=== PATIENT | male | born 1965 | race Caucasian/White ===

== ENCOUNTER 2019-04-16 06:18 | Day surgery (SDC) | payer BC ==
[2019-04-15 15:40] VITALS: BMI 26.6
[2019-04-16] MEDS ORDERED: Sodium Chloride 0.9% 10 ML ONE (06:37)
[2019-04-16] MEDS ORDERED: Thrombin 5000 UNITS/5 ML VIAL ONE (06:37)
[2019-04-16 06:58] LABS: #Eosinphils 0.1 thou/uL (0.0-0.7); #Lymphocytes 1.5 thou/uL (1.20-3.40); #Monocytes 0.6 thou/uL (0.11-0.59); #Neutrophils 5.6 thou/uL (1.40-6.50); %Basophils 0.1 % (0.0-1.0); %Eosinophils 0.8 % (0.0-10.0); %Lymphocytes 19.6 % (21.0-51.0); %Monocytes 7.9 % (0.0-10.0); %Neutrophils 71.7 % (42.0-75.0); Hemoglobin 15.4 g/dL (14.0-18.0); Mean Corpuscular HGB CONC 34.9 g/dL (32.0-36.0); Mean Corpuscular Hemoglobin 31.3 pg (27.0-31.0); Mean Corpuscular Volume 89.6 fL (78.0-98.0); Mean Platelet Volume 7.2 fL (7.4-10.4); Platelet Count 257 thou/uL (130-400); RBC Distribution Width 11.7 % (11.5-14.5); Red Blood Cell (RBC) Count 4.93 mill/uL (4.70-6.10); White Blood Cell (WBC) Count 7.8 thou/uL (4.8-10.8)
[2019-04-16] MEDS ORDERED: Cyclopentolate 1% Opth Drop 2 ML BOT ONE (07:00)
[2019-04-16] MEDS ORDERED: Phenylephrine 2.5% Ophth Soln 5 ML BOT ONE (07:00)
[2019-04-16] MEDS ORDERED: Fentanyl 250 MCG/5 ML VIAL ONE (07:02)
[2019-04-16 07:10] LABS: PTT 26.9 SEC (22.9-36.1); Prothrombin Time 12.7 SEC (12.0-14.7)
[2019-04-16 07:26] LABS: Anion Gap 11 mmol/L (10-20); BUN (Urea Nitrogen) 23 mg/dL (8.4-25.7); Calc. Creatinine Clearance 108 mL/min (70-130); Calcium 9.5 mg/dL (7.8-10.44); Carbon Dioxide 24 mmol/L (22-29); Chloride 106 mmol/L (98-107); Estimated GFR-MDRD Greater than 90; Glucose 102 mg/dL (70-105); Potassium 4.2 mmol/L (3.5-5.1); Sodium 137 mmol/L (136-145)
[2019-04-16] MEDS ORDERED: Acetaminophen 325 MG TAB PO PRN (10:26)
[2019-04-16] MEDS ORDERED: Milk Of Magnesia 30 ML UDCUP PO PRN (10:26)
[2019-04-16] MEDS ORDERED: traMADol HCl 50 MG TAB PO PRN (10:26)
[2019-04-16] MEDS ORDERED: Morphine 2 MG/ML SYRINGE SLOW IVP PRN (10:26)
[2019-04-16] MEDS ORDERED: Acetaminophen/Codeine 30-300mg Tablet PO PRN (10:26)
[2019-04-16] MEDS ORDERED: tiZANidine HCl 4 MG TAB PO PRN (10:26)
[2019-04-16] MEDS ORDERED: Fleet Enema 133 ML BOT PR PRN (10:26)
[2019-04-16] MEDS ORDERED: Bisacodyl 10 MG SUPP PR PRN (10:26)
[2019-04-16] MEDS ORDERED: HYDROcodone/Acetaminophen 7.5/325 mg Tablet PO PRN (10:26)
[2019-04-16] MEDS ORDERED: Ondansetron PF 4 MG/2 ML Vial IVP PRN (10:26)
[2019-04-16] MEDS ORDERED: Mag-Al 1200 mg/1200 mg/30 ML UDCUP PO PRN (10:26)
[2019-04-16] MEDS ORDERED: Fentanyl 100 MCG/2 ML VIAL ONE ×3 (10:46→15:14)
[2019-04-16] MEDS ORDERED: Ketorolac Tromethamine 30 MG/ML VIAL ONE (11:26)
[2019-04-16] MEDS ORDERED: Ondansetron PF 4 MG/2 ML Vial ONE ×2 (12:06→12:24)
[2019-04-16] MEDS ORDERED: PROPOFOL 200 MG/20 ML VIAL ONE (12:06)
[2019-04-16] MEDS ORDERED: Glycopyrrolate 0.2 MG/ML 5 ML SYRINGE ONE (12:06)
[2019-04-16] MEDS ORDERED: ePHEDrine 50 MG/ML VIAL ONE (12:06)
[2019-04-16] MEDS ORDERED: Lidocaine 1% PF 5 ML VIAL ONE (12:06)
[2019-04-16] MEDS ORDERED: Rocuronium Bromide 10 MG/ML (10ML VIAL) ONE (12:06)
[2019-04-16] MEDS ORDERED: Dexamethasone 20 MG/5 ML VIAL ONE (12:06)
[2019-04-16] MEDS ORDERED: Promethazine HCl 25 MG/ML VIAL ONE (13:01)
[2019-04-16] MEDS ORDERED: Ondansetron HCl/PF 4 MG/2 ML Vial IVP PRN (15:08)
[2019-04-16] MEDS ORDERED: Ketorolac Tromethamine 30 MG/ML VIAL IVP PRN (15:08)
[2019-04-16] MEDS ORDERED: Promethazine HCl 25 MG/ML VIAL IM PRN (15:08)
[2019-04-16] MEDS ORDERED: Promethazine HCl 25 MG/ML VIAL SLOW IVP PRN (15:08)
[2019-04-16] MEDS ORDERED: Acetaminophen 1,000 MG in Premix Bag 1 BAG IVPB SCH ×2 (15:15→18:00)
[2019-04-16] MEDS: CEFAZOLIN 2 GM in Premix Bag 1 BAG IVPB SCH (16:15)
[2019-04-16] MEDS: Sodium Chloride 0.9% 1,000 ML IV SCH (16:19)
[2019-04-16] MEDS ORDERED: Gabapentin 300 MG CAP PO SCH (21:00)
[2019-04-17] MEDS: CEFAZOLIN 2 GM in Premix Bag 1 BAG IVPB SCH ×2 (00:13→06:17)
[2019-04-17] MEDS: Sodium Chloride 0.9% 1,000 ML IV SCH (00:14)
[2019-04-17 04:35] VITALS: TEMP 97.9
[2019-04-17 04:36] VITALS: BP 124/71
--- NOTE | 2019-04-17 08:19 | OP ---
DATE OF PROCEDURE: 04/16/2019 LOCATION: OR 12. WOUND CLASSIFICATION: Type 1 wound. COOPERER: Noel Rosales PA-C PREPROCEDURE DIAGNOSES: Cervical stenosis with disk extrusion and neck and left arm pain and weakness. POSTPROCEDURE DIAGNOSES: Cervical stenosis with disk extrusion and neck and left arm pain and weakness. PROCEDURES PERFORMED: 1. Anterior C5-C6 and C6-C7 diskectomies for decompression of spinal cord nerve roots. 2. Placement of spacer packed with graft for arthrodesis C5-C6 and C6-C7. 3. Anterior cervical plate and screw fixation C5, C6, and C7. 4. Use of operative microscope for microdissection. DESCRIPTION OF PROCEDURE: After informed consent was obtained from the patient , the patient was brought to the OR. Proper patient, pause, and identification were carried out. He was placed under excellent endotracheal anesthesia and positioned supine on the OR table. A cervical spine was kept in neutral position. We then with a right anterior oblique petey identified the approach and proper patient, pause, and identification, incision was made. We proceeded lateral to the tracheoesophageal bundle, medial to the right carotid sheath. We identified the prevertebral layer of deep cervical fascia and the longus colli muscles and they were swept laterally. Localization film confirmed our area of interest, we then performed with the use of the operative microscope distraction of C5-C6, diskectomy was performed with excellent decompression of common dural tube. In the C6 nerve roots, copious irrigation occurred and spacer packed with graft was placed for arthrodesis following preparation of the endplates and the same procedure was done at C6-C7 with multiple disk fragments removed from the left C7 foramina. We had excellent decompression of the common dural tube and the C7 nerve roots. Copious irrigation occurred throughout as did maximizing hemostasis. Microscope was then removed, following placement of interbody spacer as well. Anterior cervical plate and screw fixation C5, C6, C7 then occurred with plate and screw fixation. I was pleased with both gross fluoroscopic visualizations. The wound was then closed in anatomic layers following hemostasis and the patient emerged from anesthesia. Job ID: [id number] [facility]
--- NOTE | 2019-04-17 11:25 | PRG ---
DATE OF SERVICE: 04/17/2019 Mr. Kirk is postoperative day 1 from C5 through C7 ACDF. He has had resolution in his left arm pain with excellent strength. His drain output in the prevertebral space has been only 10 mL. We will plan for dismissal today. We went over intra and postoperative issues. His drain will be removed. Job ID: [id number]
== END 2019-04-17 10:00 | disposition home or self-care (01) ==
LOC: EEVIPCON → SDC 06:18 → SURG B 10:18 → SDC 04-17 10:00
PROVIDERS: ATTEND Surgery
PROC: 0RT30ZZ Resection of Cervical Vertebral Disc, Open Approach (ICD-10-PCS; principal; 2019-04-16)
PROC: 0RG20A0 Fusion of 2 or more Cervical Vertebral Joints with Interbody Fusion Device, Anterior Approach, Anterior Column, Open Approach (ICD-10-PCS; principal; 2019-04-16)
DX: M48.02 Spinal stenosis, cervical region (principal); M50.122 Cervical disc disorder at C5-C6 level with radiculopathy; Z79.82 Long term (current) use of aspirin; Z79.899 Other long term (current) drug therapy; Z88.0 Allergy status to penicillin
CPT/HCPCS: 36415; 76000; 80048; 85025; 85610; 85730; 93005; 93010; C1713; C1776; J0131; J0690; J1100; J1885; J2001; J2405; J2550; J2704; J3010; J3490